=== PATIENT | male | born 1945 | race Caucasian/White ===

== ENCOUNTER 2022-06-19 13:59 | Emergency (ER) | payer MEDICARE ==
[~2022-06-19] VITALS: Ht 180.3 cm; Wt 65.9 kg
[~2022-06-19 13:59] MED LIST: ACTOS15 MG OR; ALTOPREV20 MG OR; ASACOL400 MG OR; CEPH500C57 OR; DARVOCET N-100100 - OR; DARVOCET-N 100100 MG OR; PRILOSEC20 MG OR; VICODIN ES1 TAB OR; VICODIN1 TAB PO
[2022-06-19 14:55] VITALS: BP 158/77
[2022-06-19] MEDS ORDERED: ELAVIL25 M1 PO (15:04)
[2022-06-19] MEDS ORDERED: PROTONIX40 M2 PO (15:05)
[2022-06-19 16:16] LABS: BASO% 1.2 % (0-3); EOS% 2.5 % (0-8); HEMATOCRIT 41.9 % (39.0-50.0); HEMOGLOBIN 13.4 g/dl (14.0-18.0); IMMATURE GRANULOCYTES 0.2 % (0.0-5.0); LYMPH% 32.6 % (15-41); MEAN CELL VOLUME 95.7 fL CALC (80.0-100.0); MEAN CORPUSCULAR HGB 30.6 pG CALC (26.0-32.0); MONO% 14.7 % (2-13); NEUT# 2.76 thou/uL (1.82-7.42); NEUT% 48.8 % (42-76); RED BLOOD COUNT 4.38 mill/uL (4.70-6.10); RED CELL DISTRI WIDTH 14.8 % (11.5-15.5)
[2022-06-19 16:35] LABS: ALBUMIN 4.1 g/dL (3.2-5.0); ALKALINE PHOSPHATASE 71 u/l (38-126); ANION GAP 11 (6-22 (CALC)); BILIRUBIN, TOTAL 0.4 mg/dL (0.2-1.3); BUN 12 mg/dL (8-23); BUN/CREATININE RATIO 15 (12-20 (CALC)); CARBON DIOXIDE 28 mmol/l (22-30); CHLORIDE 106 mmol/l (95-108); CREATININE 0.8 mg/dL (0.7-1.3); GFR FOR AFR.AMER. > 60 ML/MIN (>=60 (CALC)); GFR OTHER RACES > 60 ML/MIN (>=60 (CALC)); MAGNESIUM 2.2 mg/dL (1.6-2.3); POTASSIUM 3.8 mmol/l (3.5-5.1); SGOT/AST 27 u/l (19-48); SODIUM 142 mmol/l (137-146); TOTAL PROTEIN 7.6 g/dL (6.3-8.2)
[2022-06-19 17:01] VITALS: BP 149/78
[2022-06-19] MEDS ORDERED: MEDDOSEPAK PO (17:21)
[2022-06-19 18:38] VITALS: BP 149/78
== END 2022-06-19 19:10 | disposition home or self-care (01) ==
LOC: ED 13:59
PROVIDERS: Nurse Practitioner
DX: R53.1 Weakness (principal); E11.9 Type 2 diabetes mellitus without complications; Z87.01 Personal history of pneumonia (recurrent); Z20.822 Contact with and (suspected) exposure to COVID-19